=== PATIENT | female | born 1985 | race Hispanic/Latino ===

== ENCOUNTER 2017-06-07 13:37 | Emergency (ER) | payer BC ==
[2017-06-07] MEDS ORDERED: Ondansetron ODT 4 MG TAB ONE (14:02)
[2017-06-07] MEDS ORDERED: Sodium Chloride 0.9% 1,000 ML ONE (14:12)
[2017-06-07] MEDS ORDERED: Mag-Al Plus 1200 MG/1200 MG/120 MG/30 ML UDCUP ONE (14:13)
[2017-06-07] MEDS ORDERED: Lidocaine Viscous Sol 2% 15 ml UD Cup ONE (14:13)
[2017-06-07 14:53] LABS: #Basophils 0.1 thou/uL (0.0-0.2); #Eosinphils 0.2 thou/uL (0.0-0.7); #Lymphocytes 2.6 thou/uL (1.20-3.40); #Monocytes 0.9 thou/uL (0.11-0.59); #Neutrophils 7.9 thou/uL (1.40-6.50); %Basophils 0.9 % (0.0-1.0); %Lymphocytes 22.1 % (21.0-51.0); %Monocytes 7.4 % (0.0-10.0); %Neutrophils 67.6 % (42.0-75.0); Hemoglobin 12.7 g/dL (12.0-16.0); Mean Corpuscular HGB CONC 33.3 g/dL (32.0-36.0); Mean Corpuscular Hemoglobin 28.8 pg (27.0-31.0); Mean Corpuscular Volume 86.6 fl (81.0-99.0); Mean Platelet Volume 6.1 fL (7.4-10.4); Platelet Count 294 thou/uL (130-400); RBC Distribution Width 11.5 % (11.5-14.5); Red Blood Cell (RBC) Count 4.42 mill/uL (4.20-5.40); White Blood Cell (WBC) Count 11.7 thou/uL (4.8-10.8)
[2017-06-07 15:06] LABS: ALT (SGPT) 22 U/L (8-55); AST (SGOT) 23 U/L (5-34); Albumin 4.1 g/dL (3.5-5.0); Alkaline Phosphatase 67 U/L (40-150); Anion Gap 12 mmol/L (10-20); BUN (Urea Nitrogen) 10 mg/dL (7.0-18.7); Bilirubin, Total 0.3 mg/dL (0.2-1.2); Calc. Creatinine Clearance 0 mL/min (70-130); Calcium 8.7 mg/dL (7.8-10.44); Carbon Dioxide 26 mmol/L (22-29); Chloride 102 mmol/L (98-107); Estimated GFR-MDRD Greater than 90; Globulin 3.2 g/dL (2.4-3.5); Glucose 98 mg/dL (70-105); Lipase 503 U/L (8-78); Potassium 3.8 mmol/L (3.5-5.1); Protein, Total 7.3 g/dL (6.0-8.3); Sodium 136 mmol/L (136-145)
[2017-06-07] MEDS ORDERED: Fentanyl 100 MCG/2 ML VIAL ONE (15:14)
--- NOTE | 2017-06-07 16:06 | ULT ---
RIGHT UPPER QUADRANT ULTRASOUND 06/07/17 HISTORY: Nausea and vomiting in a patient with upper abdominal pain. Patient is three months . FINDINGS: The liver, gallbladder, visualized portions of the pancreas, visualized portions of the IVC and righ t kidney demonstrate a normal sonographic appearance. The right kidney measures 10 cm in length. The common duct measures 0.4 cm in diameter. IMPRESSION: No acute findings are seen on this right upper quadrant ultrasound examination. No gallbladder calcu li are seen, and the common duct is normal in caliber. POS: [facility]
== END 2017-06-07 18:00 | disposition short-term general hospital (02) ==
LOC: NAV ERS 13:37
DX: K85.90 Acute pancreatitis without necrosis or infection, unspecified (principal)
CPT/HCPCS: 36415; 76705; 80053; 83690; 85025; 96361; 96374; J3010; J7050; Q0162

== ENCOUNTER 2018-10-23 15:21 | Emergency (ER) | payer BC ==
[2018-10-23] MEDS ORDERED: Fentanyl 100 MCG/2 ML VIAL ONE (15:48)
[2018-10-23] MEDS ORDERED: Sodium Chloride 0.9% 1,000 ML ONE (15:48)
[2018-10-23] MEDS ORDERED: Ondansetron PF 4 MG/2 ML Vial ONE (15:49)
[2018-10-23 16:03] LABS: #Basophils 0.1 thou/uL (0.0-0.2); #Eosinphils 0.4 thou/uL (0.0-0.7); #Lymphocytes 2.7 thou/uL (1.20-3.40); #Neutrophils 8.3 thou/uL (1.40-6.50); %Eosinophils 3.5 % (0.0-10.0); %Lymphocytes 21.4 % (21.0-51.0); %Monocytes 7.9 % (0.0-10.0); %Neutrophils 66.1 % (42.0-75.0); Hemoglobin 13.2 g/dL (12.0-16.0); Mean Corpuscular Hemoglobin 28.7 pg (27.0-31.0); Mean Platelet Volume 6.9 fL (7.4-10.4); Platelet Count 335 thou/uL (130-400); RBC Distribution Width 11.8 % (11.5-14.5); Red Blood Cell (RBC) Count 4.61 mill/uL (4.20-5.40); White Blood Cell (WBC) Count 12.5 thou/uL (4.8-10.8)
[2018-10-23 16:24] LABS: ALT (SGPT) 23 U/L (8-55); AST (SGOT) 19 U/L (5-34); Albumin 4.6 g/dL (3.5-5.0); Alkaline Phosphatase 71 U/L (40-150); Anion Gap 14 mmol/L (10-20); BUN (Urea Nitrogen) 16 mg/dL (7.0-18.7); Bilirubin, Total 0.4 mg/dL (0.2-1.2); Calc. Creatinine Clearance 0 mL/min (70-130); Calcium 9.7 mg/dL (7.8-10.44); Carbon Dioxide 24 mmol/L (22-29); Chloride 101 mmol/L (98-107); Estimated GFR-MDRD 90; Globulin 3.2 g/dL (2.4-3.5); Glucose 105 mg/dL (70-105); Lipase 531 U/L (8-78); Potassium 3.9 mmol/L (3.5-5.1); Protein, Total 7.8 g/dL (6.0-8.3); Sodium 135 mmol/L (136-145)
[2018-10-23 16:32] LABS: Bilirubin Negative (Negative); Blood, Urine Moderate (Negative); Clarity Clear (Clear); Glucose, Urine (Dipstick) Negative (Negative); Leukocyte Small (Negative); Nitrite Negative (Negative); Protein, Urine (Dipstick) Negative (Neg-Trace); Urobilinogen 0.2 mg/dL (0.2-1.0); pH, Urine 5.5 (5.0-9.0)
--- NOTE | 2018-10-23 16:50 | ULT ---
ABDOMEN ULTRASOUND: HISTORY: Right upper arm pain. FINDINGS: The liver, spleen, kidneys, and visualized portions of the aorta and IVC appear normal. The pancreas is not well visualized due to overlying bowel gas. There is a mobile shadowing calculus in the gall bladder, measuring 6 mm. No gallbladder wall thickening or pericholecystic fluid is seen. The commo n duct measures 4 mm in diameter. No free fluid is seen in the abdomen. IMPRESSION: Cholelithiasis. POS: [facility]
[2018-10-23 16:51] LABS: Bacteria/HPF 1+ HPF (None Seen); RBC/HPF 0-3 HPF (0-3)
[2018-10-23 16:52] LABS: Pregnancy Test - Urine (BHCG) Negative (Negative); Pregu Control Background? CLEAR/WHITE (CLR/WHITE); Pregu Control Bar Appear? YES (CONTROL BAR)
== END 2018-10-23 17:06 | disposition short-term general hospital (02) ==
LOC: NAV ERS 15:21
DX: K85.10 Biliary acute pancreatitis without necrosis or infection (principal)
CPT/HCPCS: 76700; 80053; 81003; 81015; 81025; 83690; 85025; 96361; 96374; 96375; J2405; J3010; J7050

== ENCOUNTER 2020-04-13 00:10 | Emergency (ER) | payer BC, OTHER ==
--- NOTE | 2020-04-13 10:15 | RAD ---
CHEST 1 VIEW: HISTORY: History of dyspnea. COMPARISON: None. FINDINGS: Lungs are clear. Heart size is normal-appearing. No acute osseous abnormality is evident. IMPRESSION: No acute cardiopulmonary abnormality. POS: [facility]
== END 2020-04-13 01:15 | disposition home or self-care (01) ==
LOC: NAV ERS 00:10
DX: K21.9 Gastro-esophageal reflux disease without esophagitis (principal); R06.02 Shortness of breath; R07.89 Other chest pain; J45.909 Unspecified asthma, uncomplicated; Z79.899 Other long term (current) drug therapy
CPT/HCPCS: 71045; 93005; 94760

== ENCOUNTER 2020-05-25 15:43 | Emergency (ER) | payer BC ==
[~2020-05-25 15:43] MED LIST: Iopamidol 370 76% 100 ML VIAL ONE
[2020-05-25] MEDS ORDERED: Mag-Al Plus 1200 MG/1200 MG/120 MG/30 ML UDCUP ONE (15:53)
[2020-05-25] MEDS ORDERED: Ondansetron PF 4 MG/2 ML Vial ONE (15:53)
[2020-05-25] MEDS ORDERED: Lidocaine Viscous Sol 2% 15 ml UD Cup ONE (15:53)
[2020-05-25 16:16] LABS: #Basophils 0.1 thou/uL (0.0-0.2); #Eosinphils 0.1 thou/uL (0.0-0.7); #Lymphocytes 2.4 thou/uL (1.20-3.40); #Monocytes 0.9 thou/uL (0.11-0.59); %Basophils 0.8 % (0.0-1.0); %Eosinophils 0.7 % (0.0-10.0); %Lymphocytes 20.7 % (21.0-51.0); %Monocytes 7.7 % (0.0-10.0); %Neutrophils 70.2 % (42.0-75.0); Hemoglobin 12.4 g/dL (12.0-16.0); Mean Corpuscular HGB CONC 31.6 g/dL (32.0-36.0); Mean Corpuscular Hemoglobin 28.1 pg (27.0-31.0); Mean Platelet Volume 7.4 fL (7.4-10.4); Platelet Count 305 thou/uL (130-400); RBC Distribution Width 11.5 % (11.5-14.5); Red Blood Cell (RBC) Count 4.39 mill/uL (4.20-5.40); White Blood Cell (WBC) Count 11.4 thou/uL (4.8-10.8)
[2020-05-25] MEDS ORDERED: Sodium Chloride 0.9% 1,000 ML ONE (16:19)
[2020-05-25] MEDS ORDERED: Morphine 4 MG/ML VIAL ONE ×2 (16:19→17:20)
[2020-05-25 16:44] LABS: ALT (SGPT) 26 U/L (8-55); AST (SGOT) 34 U/L (5-34); Albumin 4.4 g/dL (3.5-5.0); Alkaline Phosphatase 59 U/L (40-110); Anion Gap 17 mmol/L (10-20); BUN (Urea Nitrogen) 5 mg/dL (7.0-18.7); Bilirubin, Total 0.5 mg/dL (0.2-1.2); Calc. Creatinine Clearance 0 mL/min (70-130); Calcium 9.2 mg/dL (7.8-10.44); Carbon Dioxide 18 mmol/L (22-29); Chloride 101 mmol/L (98-107); Estimated GFR-MDRD Greater than 90; Glucose 102 mg/dL (70-105); Lipase 38 U/L (8-78); Potassium 3.6 mmol/L (3.5-5.1); Protein, Total 7.4 g/dL (6.0-8.3); Sodium 132 mmol/L (136-145)
--- NOTE | 2020-05-25 18:24 | CT ---
CT ABDOMEN AND PELVIS WITH IV CONTRAST: 05/25/20 HISTORY: Abdominal pain. COMPARISON: 05/23/20. The lung bases are clear. The patient is post cholecystectomy. No free air, free fluid, or lymphadeno alton is seen in the abdomen or pelvis. The liver, spleen, pancreas, adrenal glands and kidneys are normal. The uterus and ovaries are presen t. A normal appearing appendix is present. No acute osseous abnormalities are seen. The lung bases ar e clear. IMPRESSION: No evidence of acute process. POS: OFF
[2020-05-25 18:39] LABS: Bilirubin Negative (Negative); Blood, Urine Negative (Negative); Clarity Clear (Clear); Glucose, Urine (Dipstick) Negative (Negative); Ketone, Urine 15 mg/dL (Negative); Leukocyte Large (Negative); Nitrite Negative (Negative); Protein, Urine (Dipstick) Negative (Neg-Trace); Urobilinogen 0.2 mg/dL (Less than 2)
[2020-05-25 18:47] LABS: Specific Gravity, Urine 1.002 (1.002-1.036)
[2020-05-25 18:48] LABS: Squamous Epithelial 0-3 HPF (0-3)
== END 2020-05-25 19:11 | disposition home or self-care (01) ==
LOC: NAV ERS 15:43
DX: K29.00 Acute gastritis without bleeding (principal); K21.9 Gastro-esophageal reflux disease without esophagitis; Z79.899 Other long term (current) drug therapy
CPT/HCPCS: 74177; 81003; 81015; 83690; 84484; 96361; 96374; 96375; 96376; J2270; J2405; J7050; Q9967